=== PATIENT | female | born 2000 | race Caucasian/White ===

== ENCOUNTER 2022-04-09 18:51 | Emergency (ER) | payer OTHER, SELFPAY ==
[2022-04-09 19:05] VITALS: BP 133/79; PULSE 115; RESP 18; TEMP 36.8; O2SAT 100
--- NOTE | 2022-04-09 19:23 | ED.GENADULT ---
HPI - General Adult General Chief complaint: Dental/Oral Stated complaint: toothache History of Present Illness HPI narrative: Patient is a 21-year-old female presents to the urgent care via POV for evaluation of a dental wound that began approximately 2 weeks ago 2 weeks ago. She reports pain is shooting into her right neck. She also states, my throat feels weird when I swallow . Tylenol and ibuprofen provides some relief. No improvement after using mouthwash. Movement and swallowing worsen neck pain. Patient admits to poor dentition. She reports minimal to no dental pain. Of Related Data Home Medications Medication Instructions Recorded Confirmed No Home Medications 04/09/22 04/09/22 Allergies Allergy/AdvReac Type Severity Reaction Status Date / Time No Known Allergies Allergy Verified 04/09/22 19:09 Review of Systems Review of Systems: Denies fever, chills, sweats, change in appetite, poor p.o. intake, drooling, decreased range of motion, injury, rhinorrhea, sinus problems, ear problems, LOC, gum swelling, gum redness, abscesses, abdominal pain, nausea, vomiting, diarrhea, lack of coordination, gait difficulty, shortness of breath, chest pain, heart palpitations PMFSH Comments I have reviewed and agree with the patient's past medical, surgical, social, and family hx as documented by the RN. There is no relevant family history pertinent to the presenting complaint. Exam Narrative: GENERAL: Well-appearing, well-nourished, and in no acute distress. HEAD: Normocephalic, atraumatic. No facial swelling appreciated. EYES: PERRLA and EOMI. No evidence of erythema, swelling, or drainage. ENT: Nares clear, no rhinorrhea or epistaxis.Mucous membranes moist and pink. Uvula is midline without erythema and swelling. No evidence of obstruction, petechial rash, cobblestoning, lesions, ulcers, erythema, swelling, exudates, peritonsillar abscess, tenting, or drooling. Breath odor and voice normal. Multiple mild caries noted diffusely. NECK: Supple. No Lymphadenopathy or nuchal rigidity appreciated. Large mass palpated over left sternocleidomastoid muscle. CHEST: Bilateral lung allison are clear to auscultation. No respiratory distress. No evidence of cough or pleuritic cp upon examination. HEART: Regular rate and rhythm. No murmur, gallop, or rub heard. EXTREMITIES: Normal range of motion. No edema. SKIN: Warm, dry. No evidence of cellulitis, abscess, streaking, induration, abrasions/lacerations, petechiae, hematoma, contusion, drainage, or bleeding. NEURO: No focal deficits. Alert and oriented x3. SPECIAL OBSERVATIONS: Smiling. Laughing. No evidence of discomfort. Course Course Emergency Course: The patient/guardian displays adequate decision making capability and despite a detailed discussion of alternatives, benefits, risks, and consequences refuses EMS transport to ER. Will transport via POV. Level of Care: Express Care Visit Vital Signs Vital signs: Vital Signs Temperature 98.2 F 04/09/22 19:05 Pulse Rate 115 H 04/09/22 19:05 Respiratory Rate 18 04/09/22 19:05 Blood Pressure 133/79 04/09/22 19:05 Pulse Oximetry 100 04/09/22 19:05 Oxygen Delivery Room Air 04/09/22 19:05 Temperature 98.2 F 04/09/22 19:05 Pulse Rate 115 H 04/09/22 19:05 Respiratory Rate 18 04/09/22 19:05 Blood Pressure 133/79 04/09/22 19:05 Pulse Oximetry 100 04/09/22 19:05 Oxygen Delivery Room Air 04/09/22 19:05 Due to an elevated blood pressure, I had a detailed discussion with the patient and/or guardian regarding the need for follow-up with their primary care provider within the next 3-4 days. Patient verbalized understanding and agreed. Transfer Transfer rationale: higher level of care--r/o abscess/mass/airway compromise--advanced imaging Accepting physician: ER provider Transfer comments: Report given to ER nurseJossue. Questions answered. Patient stable at time of departure. Medical
== END 2022-04-09 19:23 | disposition short-term general hospital (02) ==
PROVIDERS: Emergency Provider Nurse Practitioner Family
DX: R22.1 Localized swelling, mass and lump, neck (principal)
CPT/HCPCS: 99212; G0463

== ENCOUNTER 2022-09-15 17:50 | Emergency (ER) | payer OTHER, SELFPAY ==
[2022-09-15 18:01] VITALS: BP 105/80; PULSE 99; RESP 18; TEMP 36.9; O2SAT 100
--- NOTE | 2022-09-15 18:05 | ED.URI ---
HPI - URI/Sore Throat General Chief Complaint: Upper Respiratory Infection Stated Complaint: cough,congestion Time Seen by Provider: 09/15/22 18:06 Source: patient, RN notes reviewed and old records reviewed Mode of arrival: ambulatory Limitations: no limitations History of Present Illness HPI Narrative: 22-year-old female presents to the [facility] with the congestion and cough as well as wheezing. Reports low-grade fevers. Has taken cold medicine 3 times. MD elicited complaint: cough Related Data Allergies Allergy/AdvReac Type Severity Reaction Status Date / Time No Known Allergies Allergy Verified 09/15/22 18:12 Review of Systems Review of Systems: All systems reviewed & are unremarkable except as noted in HPI and below Constitutional: Constitutional: Reports no additional constitutional complaints, Denies chills and Denies fever(s) Eyes: Eyes: Reports no additional eye complaints ENT: Reports system reviewed and no additional complaints, except as documented Cardiovascular: Cardiovascular: Reports no additional cardiovascular complaints Respiratory: Respiratory: Reports as per HPI, Reports chest congestion and Reports cough Gastrointestinal: Gastrointestinal: Reports no additional gastrointestinal complaints Musculoskeletal: Musculoskeletal: Reports no additional musculoskeletal complaints Integumentary/Breasts: Skin/Breast: Reports system reviewed and no additional complaints, except as docu Neurologic: Reports system reviewed and no additional complaints, except as documented Psychiatric: Psychiatric: Reports no additional psychiatric complaints Allergic/Immunologic: Allergic/Immunologic: Reports no additional allergic/immunologic complaints PMFSH Surgical History Surgical History (Updated 09/15/22 @ 18:24 by Jessenia Broussard APRN) History of tonsillectomy and adenoidectomy Social History Social History (Updated 09/15/22 @ 18:23 by Jessenia Broussard APRN) Smoking status: Current every day smoker Tobacco type: e-cigarettes/vaping Gender identity (if verbalized by the patient): Female Comments At the time of my signature, I reviewed and agree with the nursing past medical, surgical, social, and family history. There is no relevant family history pertinent to the patient complaint. Exam Const: General: healthy appearing, no acute distress, alert and well nourished Nutritional Appearance: well nourished Orientation/consciousness: patient oriented x3 Limitations: no limitations HENMT: Head: normal to inspection Ears: external ears normal, TM's normal bilaterally and EAC's normal Face/Nose/Sinus: Normal external nose present and Normal nares present Face and sinus: normal facial exam Mouth: Yes Normal oral and palatal mucosa present, Yes lip normal, Yes tongue normal and Yes moist mucous membranes Throat: posterior oropharynx normal, uvula midline and tonsils absent Eyes: General: appearance normal, both eyes and all related structures Pupils: Equal, round and reactive pupils present Neck: Neck: normal visual inspection, no lymphadenopathy and no meningeal signs Chest: Chest palpation & inspection: normal inspection of the chest Resp: Effort & Inspection: normal respiratory effort and no use of accessory muscles Auscultation: clear to auscultation bilaterally, no crackles, no rales, no rhonchi and wheezes ( end expiratory throughout) expiratory wheezes Cardio: Rate: regular rate Rhythm: regular rhythm Skin: General skin exam: normal color Rashes: no rashes Wounds: no wounds Neuro: General: patient oriented x3, moves all extremities, no meningeal signs and no focal motor deficits Cranial nerves: Yes Equal, round and reactive pupils present Speech: normal speech Gait exam (Neuro): Normal gait present Extrem: General: normal to inspection, full ROM and capillary refill normal Psych: Appearance: grossly normal and well kempt Mental Status: mental status grossly normal Affect: nor
== END 2022-09-15 18:27 | disposition home or self-care (01) ==
PROVIDERS: Emergency Provider Nurse Practitioner
DX: J40 Bronchitis, not specified as acute or chronic (principal); F17.290 Nicotine dependence, other tobacco product, uncomplicated
CPT/HCPCS: 87804; 99213; G0463

== ENCOUNTER 2024-12-23 08:48 | Emergency (ER) | payer BC, SELFPAY ==
[2024-12-23 09:06] VITALS: BP 114/83; PULSE 117; RESP 16; TEMP 37.2; O2SAT 99
--- NOTE | 2024-12-23 09:29 | ED.URI ---
HPI - URI/Sore Throat General Chief Complaint: Upper Respiratory Infection Stated Complaint: Upper Respiratory Symptoms Time Seen by Provider: 12/23/24 09:22 Source: patient, RN notes reviewed and old records reviewed Mode of arrival: ambulatory Limitations: no limitations History of Present Illness HPI Narrative: 24-year-old female presents to Express Care with complaints of having fever, cough and body aches and headache since yesterday with sinus congestion. Patient reports that boyfriend with similar symptoms and he is positive for flu. Patient reports that she has been taking Mucinex Max for her symptoms with little improvement. Patient reports no nausea or vomiting or diarrhea. MD elicited complaint: fever, cough and other (Body aches) Onset (ago): day(s) (day 2 of symptoms) Severity: moderate Able to tolerate fluids by mouth: Yes Treatments prior to arrival: other (Mucinex max) Related Data Allergies Allergy/AdvReac Type Severity Reaction Status Date / Time No Known Allergies Allergy Verified 12/23/24 09:01 Review of Systems Review of Systems: CONSTITUTIONAL: Reports malaise, chills, sweats, or fever. EYES: Denies visual changes, redness, or discharge. ENT: Reports rhinorrhea, congestion, sinus pain,no otalgia and no sore throat. CARDIOVASCULAR: Denies chest pain, palpitations, or edema. RESPIRATORY: Reports cough.? Denies dyspnea. GASTROINTESTINAL: Denies abdominal pain, nausea, vomiting, diarrhea SKIN: Denies rash or itching. MUSCULOSKELETAL: Reports myalgia. NEUROLOGIC: Reports headache All systems reviewed & are unremarkable except as noted in HPI and below PMFSH Past Medical History Medical History PTSD (post-traumatic stress disorder) Surgical History Surgical History History of tonsillectomy and adenoidectomy Social History Social History Smoking status: Current every day smoker Tobacco type: e-cigarettes/vaping Alcohol intake: current Alcohol use details: social Substance use: current Substance use type: marijuana Gender identity (if verbalized by the patient): Female Comments At time of signature, agree with nursing past medical, surgical, social and family history. There is no relevant family history pertinent to the presenting complaint Exam Narrative: GENERAL: Ill-appearing, well-nourished, and in no acute distress. HEAD: Normocephalic EYES: PERRLA, conjunctivae clear ENT: Nares clear, turbinates edematous and erythematous, clear discharge. Mucous membranes moist. TM pearly barboza with dull light reflex bilaterally; no tragal tenderness. Oropharynx erythematous without lesions. Tonsils not present and without exudate, no drooling, no hoarseness, no trismus, uvula midline.post nasal congestion. NECK: Supple. No lymphadenopathy CHEST: Clear to auscultation, breath sounds equal. No wheezing, rhonchi, rales, or stridor. No respiratory distress, speaks in full sentences.SAO2 99% on room air, dry cough HEART: Regular rate and rhythm. No murmur heard. SKIN: Warm, dry, no rash. NEURO: Alert and oriented x3. PSYCH: Normal mood and affect Course Course Emergency Course: Patient is aware of diagnosis, understands and agrees to treatment plan.? Anticipatory guidance given.? Patient agrees to follow-up as directed and is aware of reasons to seek care at the emergency department. Portions of this record may have been created with voice recognition software Level of Care: Express Care Visit Vital Signs Vital signs: Vital Signs Temperature 37.2 C 12/23/24 09:06 Pulse Rate 117 H 12/23/24 09:06 Respiratory Rate 16 12/23/24 09:06 Blood Pressure 114/83 12/23/24 09:06 Pulse Oximetry 99 12/23/24 09:06 Temperature 37.2 C 12/23/24 09:06 Pulse Rate 117 H 12/23/24 09:06 Respiratory Rate 16 12/23/24 09:06 Blood Pressure 114/83 12/23/24 09:06 Pulse Oximetry 99 12/23/24 09:06 Reviewed MDM - URI/Sore Throat MDM Narrative Medical decision making narrative: Differential diagnosis considered: Hensley virus, strep pharyngitis, allergic rhinitis, upper respiratory tract infection, sinusitis, rhinosinusitis, nasopharyngitis. viral pharyngitis, otitis media, otitis externa, pneumonia, bronchitis, viral cough syndrome, viral syndrome, and influenza.? Exam findings show no acute concerns or changes; patient is non-toxic appearing and is in no distress.? Patient is appropriate for outpatient treatment and follow-up. Differential Diagnosis Differential diagnosis: Likely upper respiratory infection, sinusitis, viral infection, influenza and other (cough) Medical Records Attestation: I reviewed the patient's medical records. Lab Data Attestation: I reviewed the patient's lab results. Lab results narrative: Influenza A negative, Influenza B negative Labs: Lab Results 12/23/24 Range/Units 09:35 POC Influenza A Ag Negative (Negative) POC Influenza B Ag Negative (Negative) reviewed Critical Care Time Critical Care Time Critical Care Time: No Discharge Plan Discharge Clinical Impression: Flu-like symptoms Patient Disposition: Home, Self-Care Condition: Stable Instructions: Upper Respiratory Infection (ED) Additional Instructions: Increase fluids especially juices and water [id number] cough and cold medicine of your choice for your symptoms Cough tablets as directed for cough--do not bite, chew or suck on--swallow whole Tylenol or ibuprofen for any fever pain. may have up to 4000 mg of Tylenol per day, may have up to 2400 mg of ibuprofen per day heat to the face 20-30 minutes 4-6 times a day for pain Salt water gargles, throat lozenges or throat sprays as desired If your symptoms persist, change or worsen significantly before you can contact your personal physician then please, without delay, go to the emergency department for further evaluation. Follow-up with PCP in 7-10 days or sooner if needed must be fever free for 24 hours without use of Tylenol or ibuprofen before you can return to work Patient Language: Luxembourgish Prescriptions: New benzonatate 200 mg capsule 200 mg PO TID PRN (Reason: cough) Qty: 20 0RF Follow-up/Referrals: PHYSICIAN,ELECTRICIAN'S HELPER [Primary Care Provider] - Stand Alone Forms: Work/School Release IP Time of Disposition: 09:45 Quality Doretha Coma Scale Eyes: Open Verbal: Oriented and Alert Motor: Follows Commands Doretha Coma Total Score: 15
[2024-12-23 09:37] LABS: EDINFLUASCREEN Negative (Negative); EDINFLUBSCREEN Negative (Negative)
== END 2024-12-23 09:50 | disposition home or self-care (01) ==
PROVIDERS: Emergency Provider Registered Nurse
DX: J11.1 Influenza due to unidentified influenza virus with other respiratory manifestations (principal); F17.290 Nicotine dependence, other tobacco product, uncomplicated; F12.90 Cannabis use, unspecified, uncomplicated
CPT/HCPCS: 87804; 99213; G0463